=== PATIENT | male | born 1950 | race Caucasian/White ===

== ENCOUNTER → 2018-04-11 | Outpatient (CLI) | payer MEDICARE, BC ==
[~2018-04-11] MED LIST: CALC-734 PO; CALC-965 PO; CEPH500T7 PO; CHOL10005 PO; LOR10 PO; LOSA-50 PO; LOSA-54 PO; LOSA-57 PO; MULT-1335 PO; OXYC-865 PO; PNEI IJ; PNEU0.5D3 IM; SIM10 PO; SIMV10TA98 PO; ZOST19404 IM
== END ==
LOC: LAB 10:54
PROVIDERS: ATTEND Nurse Practitioner Family
DX: I10 Essential (primary) hypertension (principal)
CPT/HCPCS: 36415; 82310; 82374; 82435; 82565; 82947; 84132; 84295; 84520

== ENCOUNTER → 2019-02-10 | Outpatient (CLI) | payer MEDICARE, BC ==
[~2019-02-10] MED LIST changes: +ATOR40TA69 PO; +VARI50KI IM
--- NOTE | 2019-02-10 13:57 | RADIOLOGY IMAGING REPORT ---
FACILITY: [facility] [place] PATIENT NAME: Jose Manuel Estevez : 1950 MR: [id number] V: [id number] EXAM DATE: ORDERING PHYSICIAN: CANDI LIMA TECHNOLOGIST: Location: [facility] Patient: Jose Manuel Estevez : 1950 Visit/Account:[id number] Date of Sevice: 02/10/2019 DEXA Scan Clinical history: Osteopenia. Comparison: DEXA scan from 07/10/2011. LUMBAR SPINE: The bone mineral density (BMD) measured from L1-L4 correlates with a Z-score 0.0 and a T-score of -0 .4 which is Normal as defined by the World Health Organization. The corresponding risk of fracture i n the lumbar spine is Not increased compared with a young adult reference population. This value has decreased by 2.3 % since the prior study. More than 5% change is considered significant. HIP: Bone mineral density (BMD) measured in the Left femoral neck region correlates with a Z-score 0.3 and a T-score of -0.8 which is Normal as defined by the World Health Organization. The corresponding risk of fracture in the hip is Not increased compared with a young adult reference population. The to tracy hip value has increased by 3.3 % since the prior study. More than 5% change is considered signif icant. Bone mineral density (BMD) measured in the Femoral Neck region measures 1.064 g/cm2. IMPRESSION: 1. Lumbar spine: Normal. There has been decrease in the bone mineral density since the previous exa m. 2. Left femoral neck region: Normal. There has been increase in the bone mineral density of the tot al hip since the previous exam. 3. Femoral Neck: Bone Mineral Density is 1.064 g/cm2 The next DEXA scan of this patient should include the following sites: L1-L4 and the left hip. FRAX? WHO Fracture Risk Assessment Tool link: <http://www.shef.ac.uk/FRAX/tool.jsp?[email or web address]> PLEASE NOTE: 1) The World Health Organization defines low BMD as follows: T-score Normal > -1 Osteopenia < -1 and > -2.5 Osteoporosis < -2.5 without fractures Established osteoporosis < -2.5 with fractures 2) In general, you may wish to consider: Diagnosis Treatment Follow-up DEXA Normal BMD Prevention 2-3 years Osteopenia Prevention/therapy 1-2 years Osteoporosis Therapy Yearly 3) Fracture risk estimated from the T-score is more accurate for vertebral fractures (often spontane ous) than for hip fractures. Report Dictated By: Kenneth Payan at 02/10/2019 1:46 PM Report E-Signed By: Kenneth Payan at 02/10/2019 1:48 PM WSN:[id number]
== END ==
LOC: RAD 00:15
PROVIDERS: ATTEND Nurse Practitioner Family
DX: M85.80 Other specified disorders of bone density and structure, unspecified site (principal)
CPT/HCPCS: 77080